=== PATIENT | male | born 1980 | race Hispanic/Latino ===

== ENCOUNTER 2024-12-22 17:51 | Emergency (ER) | payer SELFPAY ==
[2024-12-22 17:52] VITALS: BP 120/80; PULSE 64; RESP 16; TEMP 36.6; O2SAT 100; BMI 25.5
[2024-12-22 19:16] VITALS: BP 118/74; PULSE 52; RESP 16; O2SAT 100
--- NOTE | 2024-12-22 19:32 | EX.ED.DYSGE1 ---
HPI <ALONA Waller - Last Filed: 12/22/24 21:40> History of Present Illness Chief Complaint: General Illness Narrative Narrative: 44-year-old Niuean speaking male with no past medical history presents for 2 months of unintentional weight loss. His stepdaughter interprets and states he weighed around 230 to 240 pounds 2 months ago and is now down to 160. He denies drinking a lot of water and urinating frequently. He has no known history of diabetes. He takes no medications and does not see a doctor. He used to smoke and drink alcohol for 5 years but quit about 12 years ago. PFSH <ALONA Waller - Last Filed: 12/22/24 21:40> [facility] Medical History no medical history Home Medications ?Medication ?Instructions ?Recorded ?Last Taken ?Type metformin 500 mg tablet 500 mg PO BID 30 days #60 tabs 12/22/24 Unknown Rx Allergy/AdvReac Type Severity Reaction Status Date / Time No Known Allergies Allergy Verified 12/22/24 17:54 Social History Smoking Status: Former smoker ROS <ALONA Waller - Last Filed: 12/22/24 21:40> ROS ED ROS Narrative Constitutional: Negative for fever, chills, malaise. CVS: Negative for chest pain. Respiratory: Negative for shortness of breath, cough. GI: Negative for abdominal pain, nausea, vomiting, diarrhea, melena, hematochezia. : Negative for dysuria. EXAM <ALONA Waller - Last Filed: 12/22/24 21:40> Physical Exam Narrative Exam Narrative: CONST: Patient sitting in no acute distress. EYES: Normal inspection. NECK: Normal inspection. RESP: No respiratory distress, CTAB. CVS: Regular rate and rhythm, no murmur, no gallop. ABD: Soft and nontender, no guarding or rebound, nondistended. SKIN: Color normal, no rash, warm, dry, intact. EXTREMITIES: Normal appearance, no pedal edema. NEURO: Alert and answering questions appropriately. PSYCH: Normal affect. Const Vital Signs: 12/22/24 17:52 12/22/24 19:13 12/22/24 19:16 Temperature 97.9 F Temperature Source Oral Pulse Rate 64 52 L Respiratory Rate 16 16 Respiratory Effort Normal Respiratory Pattern Normal Blood Pressure 120/80 118/74 Blood Pressure Mean 93 88 Pulse Ox 100 100 Oxygen Delivery Method Room Air Room Air 12/22/24 21:00 Temperature Temperature Source Pulse Rate 64 Respiratory Rate Respiratory Effort Respiratory Pattern Blood Pressure 148/81 H Blood Pressure Mean 103 Pulse Ox 100 Oxygen Delivery Method Room Air <Dr. Clyde Potts MD - Last Filed: 12/22/24 21:47> Physical Exam Const Vital Signs: 12/22/24 17:52 12/22/24 19:13 12/22/24 19:16 Temperature 97.9 F Temperature Source Oral Pulse Rate 64 52 L Respiratory Rate 16 16 Respiratory Effort Normal Respiratory Pattern Normal Blood Pressure 120/80 118/74 Blood Pressure Mean 93 88 Pulse Ox 100 100 Oxygen Delivery Method Room Air Room Air 12/22/24 21:00 Temperature Temperature Source Pulse Rate 64 Respiratory Rate Respiratory Effort Respiratory Pattern Blood Pressure 148/81 H Blood Pressure Mean 103 Pulse Ox 100 Oxygen Delivery Method Room Air MDM <ALONA Waller - Last Filed: 12/22/24 21:40> MDM MDM Narrative Medical decision making narrative: History gathered from: Patient and stepdaughter who interprets Differential includes but not limited to new onset DM2 versus DKA 44-year-old male has had 2 months of unintentional weight loss with polydipsia and polyuria. He is awake alert no distress with stable vital signs and a benign exam. Workup is consistent with new onset diabetes without DKA?glucose 453, normal CO2 and gap. Pseudohyponatremia at 132 with normal renal function. A1c is 16.1. I prescribed metformin and give the first dose here. I instructed him to follow-up with the [facility] closely for further medication management and diabetes education. He expressed understanding was discharged in stable condition. Lab Data Attestation: I reviewed the patient's lab results. Labs: Laboratory Results - last 24 hr 12/22/24 19:35 WBC 6.9 RBC 5.54 Hgb 15.4 Hct 42.6 MCV 76.9 L MCH 27.8 MCHC 36.2 H RDW Std Deviation 32.6 L RDW Coeff of Smiley 12.0 Plt Count TNP MPV TNP Immature Gran % (Auto) 0.300 Neut % (Auto) 47.6 Lymph % (Auto) 41.1 H Kingman % (Auto) 7.4 Eos % (Auto) 3.0 Baso % (Auto) 0.6 Absolute Neuts (auto) 3.3 Absolute Lymphs (auto) 2.84 Nucleated RBC % 0 Differential Comment SCANNED Platelet Estimate MOD DEC Sodium 132 L Potassium 3.5 Chloride 95 L Carbon Dioxide 24.9 Anion Gap 12 BUN 12 Creatinine 0.77 Estim Creat Clear Calc 119.68 Est GFR (MDRD) Non-Af 114 BUN/Creatinine Ratio 16.2 Glucose 453 H* Hemoglobin A1c 16.1 H Calcium 9.7 Total Bilirubin 0.45 AST 16 ALT 29 Alkaline Phosphatase 166 H Total Protein 7.5 Albumin 4.7 Globulin 2.8 Albumin/Globulin Ratio 1.6 Urine Color Straw Urine Clarity Clear Urine pH 6.0 Ur Specific Hopkins 1.015 Urine Protein 30 H Urine Glucose (UA) 1000 H Urine Ketones 5 H Urine Occult Blood 10 H Urine Nitrite Negative Urine Bilirubin Negative Urine Urobilinogen Normal Ur Leukocyte Esterase Negative <Dr. Clyde Potts MD - Last Filed: 12/22/24 21:47> MDM MDM Narrative Medical decision making narrative: History gathered from: Patient and stepdaughter who interprets Differential includes but not limited to new onset DM2 versus DKA 44-year-old male has had 2 months of unintentional weight loss with polydipsia and polyuria. He is awake alert no distress with stable vital signs and a benign exam. Workup is consistent with new onset diabetes without DKA?glucose 453, normal CO2 and gap. Pseudohyponatremia at 132 with normal renal function. A1c is 16.1. I prescribed metformin and give the first dose here. I instructed him to follow-up with the [facility] closely for further medication management and diabetes education. He expressed understanding was discharged in stable condition. I have personally performed a face to face assessment of the patient and have reviewed the ASIA Note. I performed a substantive portion of the visit including all aspects of the following. My sheridan findings include: History is 44-year-old diabetic male with polydipsia polyuria and weight loss. No known medical history but does not see a primary care physician. Family member here with him is acting as staff interpreter. Exam is [well-appearing 44-year-old male. Vital signs stable afebrile. H EENT exam pupils round react to light. Moist Y[place]any membranes. Neck nontender no JVD. No lymphadenopathy. Lungs clear to auscultation bilaterally. Heart regular rhythm rate about 65 no murmur. Chest wall ribs nontender. Abdomen soft nontender. Moving all 4 extremities. Nontender no edema. No wounds. Neurologically he is awake. He is answering questions following commands.] Medical Decision Making [44-year-old male new onset diabetes with a blood sugar of 453. He will be started on metformin. Discharged to home with follow-up with the [facility].] Other additions or changes: [None] History & Record Review Discussion w/independent historian: Patient and Family Lab Data Lab results narrative: CBC shows white count of 6. H&H 15 and 42. Electrolytes show sodium 132. Gap of 12. BUN and creatinine of 12 and 0.7. Glucose of 453. Hemoglobin A1c is 16. Liver enzymes unremarkable. UA at thousand glucose. Labs: Laboratory Results - last 24 hr 12/22/24 19:35 WBC 6.9 RBC 5.54 Hgb 15.4 Hct 42.6 MCV 76.9 L MCH 27.8 MCHC 36.2 H RDW Std Deviation 32.6 L RDW Coeff of Smiley 12.0 Plt Count TNP MPV TNP Immature Gran % (Auto) 0.300 Neut % (Auto) 47.6 Lymph % (Auto) 41.1 H Kingman % (Auto) 7.4 Eos % (Auto) 3.0 Baso % (Auto) 0.6 Absolute Neuts (auto) 3.3 Absolute Lymphs (auto) 2.84 Nucleated RBC % 0 Differential Comment SCANNED Platelet Estimate MOD DEC Sodium 132 L Potassium 3.5 Chloride 95 L Carbon Dioxide 24.9 Anion Gap 12 BUN 12 Creatinine 0.77 Estim Creat Clear Calc 119.68 Est GFR (MDRD) Non-Af 114 BUN/Creatinine Ratio 16.2 Glucose 453 H* Hemoglobin A1c 16.1 H Calcium 9.7 Total Bilirubin 0.45 AST 16 ALT 29 Alkaline Phosphatase 166 H Total Protein 7.5 Albumin 4.7 Globulin 2.8 Albumin/Globulin Ratio 1.6 Urine Color Straw Urine Clarity Clear Urine pH 6.0 Ur Specific [place] 1.015 Urine Protein 30 H Urine Glucose (UA) 1000 H Urine Ketones 5 H Urine Occult Blood 10 H Urine Nitrite Negative Urine Bilirubin Negative Urine Urobilinogen Normal Ur Leukocyte Esterase Negative Discharge Plan Triage Chief Complaint: General Illness ED Midlevel Provider: Kath Monzon ED Provider: Clyde Potts Dx/Rx/DC Orders Clinical Impression: New onset type 2 diabetes mellitus, Unintentional weight loss Instructions: Diabetes Carbs Fats Protein, Blood Sugar Check Steps Prescriptions: New metformin 500 mg tablet 500 mg PO BID 30 Days Qty: 60 0RF Primary Care Provider: Care Physician,No Primary Referrals: U [Other] Activity Restrictions/Additional Instructions: Your blood sugars are very high which means you have diabetes. It is important you start taking the prescribed medication and follow-up with your doctor in the next week. You will need further adjustments of your medications to manage your blood sugar. Print Language: [place] Islander Disposition Disposition: Home, Self Care
[2024-12-22 19:49] LABS: Mucous, Urine 0 SEEN /hpf (<or=2+); Red Blood Cells-Urine 0 SEEN /hpf (0-5)
[2024-12-22 19:59] LABS: Hematocrit 42.6 % (40-54); Hemoglobin 15.4 g/dL (13.0-16.5); Immature Granulocytes Count 0.020 X10^3/uL (0.0-0.0); Mean Corp Hgb Conc 36.2 g/dL (32-36); Mean Corpuscular Volume 76.9 fL (80-94); NRBC Flagged by Analyzer 0 % (0-5); POSITIVE COUNT YES; RBC Distribution Width CV 12.0 % (11.6-14.6); RBC Distribution Width SD 32.6 fl (35.1-43.9); Red Blood Count 5.54 M/mm3 (4.6-6.2); White Blood Count 6.9 K/mm3 (4.4-11.0)
[2024-12-22 20:04] LABS: Color, Urine Straw (Yellow); Glucose, Dipstick 1000 mg/dl (Normal); Ketone-Dipstick 5 mg/dl (Negative); Leukocyte Esterase-Dipstick Negative /ul (Negative); Nitrite-Dipstick Negative (Negative); Occult Blood-Urine 10 /ul (Negative); Protein-Dipstick 30 mg/dl (Negative); Specific Gravity, Urine 1.015 (1.002-1.030); Urine Bilirubin Dipstick Negative (Negative)
[2024-12-22 20:23] LABS: AST(SGOT) 16 U/L (<=37); Alanine Aminotransfer ALT/SGPT 29 U/L (<=46); Albumin, Serum 4.7 g/dL (3.5-5.0); Alkaline Phosphatase 166 U/L (40-129); Anion Gap 12 (5-15); BUN 12 mg/dL (4-19); BUN/Creat Ratio 16.2 RATIO (10-20); Calcium,Total 9.7 mg/dL (7.6-11.0); Carbon Dioxide 24.9 mmol/L (21.0-32.0); Chloride 95 mmol/L (98-108); Estimated Creatinine Clearance 119.68 ml/min (50-250); Globulin 2.8 g/dL (2.2-4.2); Glucose 453 mg/dL (70-99); Potassium 3.5 mmol/L (3.3-5.1)
[2024-12-22 20:45] LABS: Differential Comment SCANNED
[2024-12-22 21:00] VITALS: BP 148/81; PULSE 64; O2SAT 100
[2024-12-22] MEDS: 0.9% Normal Saline (1000mL) 1,000 ML 999 ML IV (21:19)
[2024-12-22 21:48] VITALS: BP 148/81; PULSE 64; RESP 16; TEMP 36.6; O2SAT 100
[2024-12-22 22:15] LABS: Squamous Epithelial Cells - UA 0-5 SEEN /hpf (0-5)
== END 2024-12-22 21:59 | disposition home or self-care (01) ==
PROVIDERS: Physician Assistant; Emergency Provider Emergency Medicine; Visit Provider Emergency Medicine
DX: E11.9 Type 2 diabetes mellitus without complications (principal); Z87.891 Personal history of nicotine dependence; Z79.84 Long term (current) use of oral hypoglycemic drugs; R63.4 Abnormal weight loss
CPT/HCPCS: 80053; 81001; 83036; 85025; 96360; 99283; A4216